=== PATIENT | female | born 1965 | race Caucasian/White ===

== ENCOUNTER 2025-03-04 14:03 | Outpatient (AMB) | payer BC, SELFPAY ==
--- NOTE | 2025-03-04 14:13 | GYNCLNT_ITS ---
Vital Signs 03/04/25 14:22 Height 1.5 m Height Method Stated Weight 59.931 kg Weight Measurement Method Standing Scale BMI 26.6 BP 138/86 H Blood Pressure Source Automatic Cuff Blood Pressure Location Right Upper Arm Position Sitting Respiration 16 Pulse 78 Pulse Source Monitor Temp 98.2 F Temp Source Oral Pulse Oximetry (%) 95 Oxygen Delivery Method Room Air Allergies/Home Meds Allergies & Medications Allergies ibuprofen Allergy (Mild, Verified 03/21/25 20:16) Rash prochlorperazine (From Compazine) Allergy (Verified 03/21/25 20:16) Dizziness Medication Reconciliation dapagliflozin propanediol 5 mg tablet (Farxiga) 5 mg PO QDAY 03/21/25 [History] estradiol 0.1 mg/24 hr weekly transdermal patch 1 patch transdermal QWEEK 03/21/25 [History] pravastatin 40 mg tablet 40 mg PO QDAY 03/21/25 [History] semaglutide 7 mg tablet (Rybelsus) 7 mg PO QDAY 03/21/25 [History] Intake Visit Data Collection New Patient or Established: New Patient (never been to [facility]) Reason for Visit:: ANNUAL WELLNESS Seen by Clinical Staff ONLY (RN/MA): 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 Do You Feel Safe at Home: Yes Authorities Contacted: N/A PCP or OBGYN visit in last 3 months: Yes Hx Now: No Are you currently on any form of Control: No Pain Present Currently: No Pain Scale Used: Gilmore-Ramirez/Numerical Pain scale:: 0 Smoking Status Smoking Status: Never smoker Pill Maker history Pill Maker History Age at menarche: 9 Menopausal: Yes If menopausal, at what age did it occur: 53 Years of hormone replacement (if applicable): 6 Currently sexually active: Yes 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 History of right shoulder surgery. History of x 3 in 1983, 1986 and in 1992 . Appendectomy in 1969 Right salpingo-oophorectomy in 1989 Hysterectomy 2019. Other Relevant History: Has lvd-eikfqhc-ipcidteri diabetes, has high cholesterol. On medications for both. Questionnaires Covid-19 Vaccine Questionnaire Has patient been vacinated for Covid-19 Have you been vacinated for Covid-19: Yes PHQ-9 PHQ-2 Over the last 2 weeks, how often have you been bothered by any of the following problems? 1. Little interest or pleasure in doing things: not at all 2. Feeling down, depressed, or hopeless: not at all Total score: 0 PHQ-9 3. Trouble falling or staying asleep, or sleeping too much: Not at all 4. Feeling tired or having little energy: Not at all 5. Poor appetite or overeating: Not at all 6. Feeling bad about yourself - or that you are a failure or have let yourself or your family down: Not at all 7. Trouble concentrating on things, such as reading the newspaper or watching television: Not at all 8. Moving or speaking so slowly that other people could have noticed? - Or the opposite - being so fidgety or restless that you have been moving around a lot m ore than usual: not at all 9. Thoughts that you would be better off or of hurting yourself in some way: Not at all Total score: 0 Source: Developed by Drs. Vladimir Sawyer, Lupe Gaitan, Zay Barillas and colleagues, with an educational jessica from [employer]. 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 She used to see me in [place]. She did not release her medical records to me yet. 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 Today she is reporting some left breast pain and she feels a pulling sensation. She has a history of her cyst being drained on her left breast years ago with Dr. Micah Mccracken. Her last menstrual period was 2019. She did have a hysterectomy for continued bleeding after a cervical biopsy. Patient is menopausal and has been on a estrogen patch since then. She is interested in hearing about a bone mineral density test. She otherwise has no gynecological complaints today besides left breast tenderness. Review of Systems Review of Systems Narrative Review of Systems: Patient reports some fatigue occasional sinus problems some minor incontinence left breast pain muscle joint pain and muscle weakness occasional headaches and occasional constipation Exam General General Appearance: alert, in no apparent distress, comfortable, cooperative, healthy appearing, well developed and well groomed Neck Neck exam: Present normal inspection, full ROM and trachea midline Chest Chest inspection: Present normal inspection and symmetric chest wall rise Exp Chest Breast: bilateral: other (Bilateral fibrocystic breast changes.) Resp Respiratory exam: Present normal lung sounds bilaterally Card Cardiovascular exam: Present regular rate, normal rhythm and normal heart sounds Abdominal Abdominal exam: Present soft and normal bowel sounds External exam: Present normal external exam (Good estrogen present) Speculum exam: Present normal speculum exam and other (Cervix and uterus surgically absent) Bimanual exam: Present normal bimanual exam (Cuff intact. Good pelvic support. Uterus and cervix surgically absent. Left adnexa within normal limits. Right adnexa surgically absent.) Psych Psychiatric exam: Present normal affect and normal mood Skin Skin exam: Present warm, dry, intact and normal color Office Procedures OB Clinic LOC & Office Proc's Nursing/Assessment Patient Status: Initial/New Patient OB Clinic Nursing Assessment: Medication Reconciliation, Update PMH in EMR and Vital Signs OB Clinic Coordination of Care: Complex Care and Chronic Disease 1-5, Consent,records obtained, informed consent, Education Simp Pt/Fam, Lab and Imaging orders and Staff clarify orders Miscellaneous Interventions: Breast Exam and Pelvic/Pap Smear Set up New Patient Charge New Patient Point Assignment: 1149 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 Will authorize for bone mineral density test. Colonoscopy was performed in 10/06. Endoscopy performed 12/09. (2) Breast lump in female: Status: Acute Assessment and Plan: Mammogram with bilateral breast ultrasound ordered. If abnormalities are present, will refer to Dr. Long in [place], her primary care is Dr. Chicas. (3) Hypoestrogenism: Status: Acute Assessment and Plan: Continue estrogen patch (4) Post-menopausal: Status: Acute Assessment and Plan: Calcium vitamin D and moderate weight bearing exercise discussed. Diet and exercise stretching discussed. 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
[2025-03-04 14:22] VITALS: BP 138/86; PULSE 78; RESP 16; TEMP 36.8; O2SAT 95; BMI 26.6
== END 2025-03-04 14:56 | disposition home or self-care (01) ==
LOC: HODSOBC 14:03
PROVIDERS: PCP Obstetrics & Gynecology; Referring Provider Obstetrics & Gynecology; Supervising Provider Obstetrics & Gynecology; Visit Provider Obstetrics & Gynecology
DX: Z01.411 Encounter for gynecological examination (general) (routine) with abnormal findings (principal); N63.0 Unspecified lump in unspecified breast; Z11.51 Encounter for screening for human papillomavirus (HPV); Z78.0 Asymptomatic menopausal state; Z90.710 Acquired absence of both cervix and uterus; Z90.79 Acquired absence of other genital organ(s); Z90.721 Acquired absence of ovaries, unilateral; Z90.49 Acquired absence of other specified parts of digestive tract; Z79.890 Hormone replacement therapy; Z88.6 Allergy status to analgesic agent
CPT/HCPCS: 99204; Q0091; G0463